=== PATIENT | male | born 1985 | race Caucasian/White ===

== ENCOUNTER 2020-05-18 10:25 | Emergency (ER) | payer OTHER ==
[~2020-05-18] VITALS: Ht 193 cm; Wt 113.4 kg
[2020-05-18 11:57] VITALS: BP 142/88
== END 2020-05-18 12:10 | disposition home or self-care (01) ==
LOC: ER 10:25 → EEVIPCON 10:25 → ER 12:10
DX: S00.83XA Contusion of other part of head, initial encounter (principal); W06.XXXA Fall from bed, initial encounter; Y93.89 Activity, other specified; Y92.092 Bedroom in other non-institutional residence as the place of occurrence of the external cause; Y99.8 Other external cause status
CPT/HCPCS: 70450

== ENCOUNTER 2020-05-28 14:24 | Emergency (ER) | payer OTHER ==
[~2020-05-28] VITALS: Ht 188 cm; Wt 95.3 kg
[2020-05-28 14:59] VITALS: BP 126/81
== END 2020-05-28 15:11 | disposition left against medical advice (07) ==
LOC: ER 14:24
DX: U07.1 COVID-19 (principal); Z53.21 Procedure and treatment not carried out due to patient leaving prior to being seen by health care provider

== ENCOUNTER → 2020-11-05 | Outpatient (CLI) | payer OTHER | END | disposition home or self-care (01) | LOC: US 09:19 | DX: G35 Multiple sclerosis (principal) | CPT/HCPCS: 93970 ==

== ENCOUNTER 2021-08-14 17:43 | Emergency (ER) | payer OTHER ==
[~2021-08-14] VITALS: Ht 193 cm; Wt 113.4 kg
[2021-08-14 18:53] LABS: Anion Gap 12 (5-15); BUN/Creatinine Ratio 25.6; Blood Urea Nitrogen 21 mg/dL (7-18); Calcium 9.3 mg/dL (8.5-10.1); Carbon Dioxide 21 mmol/L (21-32); Chloride 104 mmol/L (98-107); GFR African American 136 mL/min; GFR Non-African American 112 mL/min; Glucose 88 mg/dL (74-106); Potassium 3.8 mmol/L (3.5-5.1); Sodium 137 mmol/L (136-145)
[2021-08-14 18:57] LABS: Alanine Aminotransferase 25 U/L (16-61); Alkaline Phosphatase 62 U/L (45-117); Aspartate Aminotransferase 18 U/L (15-37); Bilirubin, Total 0.8 mg/dL (0.2-1.0); Total Protein 7.3 g/dL (6.4-8.2)
[2021-08-14 18:58] LABS: Basophils # (auto) 0 10 ^3/uL (0-0.2); Basophils % (auto) 0.6 % (0.0-2.0); Eosinophils # (auto) 0.3 10 ^3/uL (0-0.8); Eosinophils % (auto) 3.6 % (0.0-7.0); Hematocrit 44.4 % (41.0-53.0); Hemoglobin 15.1 g/dL (13.5-17.5); Lymphocytes # (auto) 2.7 10 ^3/uL (0.4-5.4); Lymphocytes % (auto) 37.1 % (10.0-50.0); Mean Corpuscular Hemoglobin 29.8 pg (28.0-32.0); Mean Corpuscular Hgb Conc. 33.9 g/dL (32.0-36.0); Monocytes # (auto) 0.9 10 ^3/uL (0-1.3); Monocytes % (auto) 11.9 % (0.0-12.0); Neutrophils # (auto) 3.4 10 ^3/uL (1.6-8.6); Neutrophils % (auto) 46.8 % (37.0-80.0); Red Blood Cells 5.04 10^6/uL (4.5-5.90); Red Cell Distribution Width 13.5 % (11.8-14.3); White Blood Cell 7.2 10^3/uL (4.4-10.8)
[2021-08-14 23:31] VITALS: BP 160/99
== END 2021-08-14 23:33 ==
LOC: EDBD 17:43 → ER 17:45 → EEVIPCON 17:45 → ER 23:33
DX: G35 Multiple sclerosis (principal); F41.9 Anxiety disorder, unspecified; Z98.890 Other specified postprocedural states
CPT/HCPCS: 36415; 80053; 84484; 85025